=== PATIENT | male | born 1980 | race Caucasian/White ===

== ENCOUNTER 2019-01-24 00:55 | Emergency (ER) | payer OTHER ==
--- NOTE | 2019-01-24 01:41 | EDPHY ---
H & P Stated Complaint: tounge swollen and spasm Time Seen by Provider: 01/24/19 01:29 HPI/ROS: Chief Complaint: Tongue pain HPI: 38-year-old male's complaining of pain in his tongue. Patient states that he bit his tongue several days ago. He has had increasing swelling at the site in this evening felt a pop with some discharge. Patient's pain has improved. States he has been having some increasing cell elevation in swelling lot of saliva. He has been able swallow this. No difficulty breathing. No throat swelling. No jaw pain. No swelling under his jaw. ROS: 10 systems were reviewed and were negative except those elements noted in the HPI. PMH: Denies Social History: No smoking, no alcohol, no recreational drug use Family History: non-contributory Physical Exam: Gen: Awake, Alert, No Distress HEENT: Nose: no rhinorrhea Eyes: PERRLA, EOMI Mouth: Moist mucosa there is an ulcerated lesion on the left side of his tongue. There is no masses fluctuance or pointing. There is no discharge. There is no significant swelling. Oropharynx is normal. There is no trismus. Neck: Supple, no JVD, Ext: no edema, non-tender Skin: no rash Neuro: CN II-XII intact, Sensation grossly intact, Strength 5/5 in bilateral upper and lower extremities - Personal History Current Tetanus/Diphtheria Vaccine: Unsure - Medical/Surgical History Hx Asthma: No Hx Chronic Respiratory Disease: No Hx Diabetes: No Hx Cardiac Disease: No Hx Renal Disease: No Hx Cirrhosis: No Hx Alcoholism: No Hx HIV/AIDS: No Hx Splenectomy or Spleen Trauma: No Other PMH: denies - Social History Smoking Status: Current every day smoker Constitutional: Initial Vital Signs Temperature (C) 36.9 C 01/24/19 00:59 Heart Rate 99 01/24/19 00:59 Respiratory Rate 20 01/24/19 00:59 Blood Pressure 125/89 H 01/24/19 00:59 O2 Sat (%) 97 01/24/19 00:59 O2 Delivery Mode Room Air Allergies/Adverse Reactions: Penicillins Adverse Reaction (Severe, Verified 01/24/19 00:58) Home Medications: Medication Instructions Recorded Clindamycin HCl [Clindamycin] 300 mg PO TID #20 cap 01/24/19 Medical Decision Making ED Course/Re-evaluation: 38-year-old male with tongue pain with excoriated region. Possible drained abscess however there is no signs at this time. Patient is concerned about possible infection. Will start him on some clindamycin and follow up with primary care. Departure - Departure Disposition: Home, Routine, Self-Care Clinical Impression: Abrasion of tongue Condition: Good Instructions: Clindamycin (By mouth), Mouth Care (ED) Additional Instructions: Follow up with primary care physician in 3-4 days for further evaluation. Return to the emergency department for increasing pain, difficulty swallowing, difficulty breathing, or any other concerns. Referrals: Anjelica Lua MD [Medical Doctor] - As per Instructions Prescriptions: Clindamycin HCl [Clindamycin] 300 mg PO TID #20 cap
[2019-01-24] MEDS ORDERED: CLINDAMYCIN 150MG PREPACK#6 BTL TAKEHOME ONE (01:46)
[2019-01-24 02:03] VITALS: BP 145/75
== END 2019-01-24 02:00 | disposition home or self-care (01) ==
DX: S01.552A Open bite of oral cavity, initial encounter (principal)